=== PATIENT | male | born 1985 | race Caucasian/White ===

== ENCOUNTER 2019-03-05 04:07 | Emergency (ER) | payer OTHER ==
[2019-03-05] MEDS ORDERED: ASPIRIN 81 MG TABLET, CHEWABLE PO ONE (04:50)
[2019-03-05] MEDS ORDERED: KETOROLAC TROMETHAMINE INJ/PF 30 MG/1 ML SDV IV ONE (04:51)
[2019-03-05 05:06] LABS: ABSOLUTE EOSINOPHILS # (AUTO) 0.2 10^3/uL (0.0-0.6); ABSOLUTE LYMPHOCYTES (AUTO) 3.2 10^3/uL (0.5-4.7); ABSOLUTE MONOCYTES (AUTO) 0.6 10^3/uL (0.1-1.4); ABSOLUTE NEUT (AUTO) 4.8 10^3/uL (1.7-8.2); BASOPHILS % (AUTO) 0.5 % (0-2); EOSINOPHILS % (AUTO) 2.6 % (0-6); HEMATOCRIT 45.6 % (37.9-51.0); HEMOGLOBIN 15.6 g/dL (13.5-17.0); MEAN CORPUSCULAR HEMOGLOBIN 30.2 pg (27.0-33.4); MEAN CORPUSCULAR HGB CONC 34.2 g/dL (32.0-36.0); MEAN CORPUSCULAR VOLUME 88 fl (80-97); MONOCYTES % (AUTO) 6.9 % (3-13); PLATELET COUNT 249 10^3/uL (150-450); RED BLOOD COUNT 5.17 10^6/uL (4.35-5.55); RED CELL DISTRIBUTION WIDTH 12.7 % (11.5-14.0); TOTAL CELLS COUNTED % (AUTO) 100 %; WHITE BLOOD COUNT 8.8 10^3/uL (4.0-10.5)
[2019-03-05 05:10] LABS: ALBUMIN 4.5 g/dL (3.5-5.0); ALKALINE PHOSPHATASE 94 U/L (38-126); ASPARTATE AMINO TRANSFERASE 23 U/L (17-59); CARBON DIOXIDE 27 mmol/L (22-30); CREATINE KINASE 103 U/L (55-170); GLUCOSE 94 mg/dL (75-110)
[2019-03-05 05:21] LABS: ANION GAP 9 (5-19); BILIRUBIN,DIRECT 0.2 mg/dL (0.0-0.4); BILIRUBIN,TOTAL 0.5 mg/dL (0.2-1.3); BLOOD UREA NITROGEN 18 mg/dL (7-20); CALCIUM 9.7 mg/dL (8.4-10.2); CHLORIDE 103 mmol/L (98-107); POTASSIUM 4.4 mmol/L (3.6-5.0); TOTAL PROTEIN 7.5 g/dL (6.3-8.2)
[2019-03-05 05:29] LABS: CREATINE KINASE MB 0.94 ng/mL (<4.55)
[2019-03-05 05:31] LABS: TROPONIN I < 0.012 ng/mL
--- NOTE | 2019-03-05 05:33 | RADIOLOGY REPORT (SQ) ---
Chest single view on 03/05/2019 at 5:10 AM CLINICAL INDICATION: Chest pain COMPARISON: None FINDINGS: The lungs are clear. There is slight elevation of the left hemidiaphragm. Cardiac, hilar and mediastinal contours are within normal limits. Pulmonary vascularity is within normal limits. No acute bony abnormality is noted. IMPRESSION: No active disease.
--- NOTE | 2019-03-05 07:13 | ER Document Report ---
ED General - General Chief Complaint: Chest Pain Stated Complaint: CHEST PAIN,UPPER BACK PAIN Time Seen by Provider: 03/05/19 04:42 Notes: Patient is a 33-year-old male presents to the emergency department with left shoulder pain, left sternocleidomastoid and left anterior chest pain. 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 States his pain started when he was driving a truck. States he turned his head to the left as he was trying to look out of his review mirror. Patient voices that the pain was not a sudden onset. States it was steady slow onset. States approximately 2013 he was admitted to [facility] and underwent a cardiac stress test. As he was told he "may have had a heart attack." Patient voices he was concerned this was his heart which is why he presents to the emergency room. Patient voices he has not followed up with cardiology since. States he does have a history of hypertension, takes lisinopril, also takes Klonopin as needed for anxiety. Patient does admit to daily cigarette smoking. TRAVEL OUTSIDE OF THE [place] IN LAST 30 DAYS: No - Related Data Allergies/Adverse Reactions: morphine Allergy (Verified 03/05/19 04:13) fluoxetine [From Prozac] Adverse Reaction (Mild, Verified 03/05/19 04:30) Hallucinations Past Medical History - General Information source: Patient - Social History Smoking Status: Current Every Day Smoker Chew tobacco use (# tins/day): No Frequency of alcohol use: Occasional Drug Abuse: None Family History: Reviewed & Not Pertinent Patient has suicidal ideation: No Patient has homicidal ideation: No - Past Medical History Cardiac Medical History: Reports: Hx Hypertension Review of Systems - Review of Systems Constitutional: denies: Fever EENT: No symptoms reported Cardiovascular: See HPI Respiratory: No symptoms reported Gastrointestinal: No symptoms reported Genitourinary: No symptoms reported Male Genitourinary: No symptoms reported Musculoskeletal: See HPI Skin: No symptoms reported Hematologic/Lymphatic: No symptoms reported Neurological/Psychological: No symptoms reported Physical Exam - Vital signs Vitals: Pulse Ox 100 03/05/19 04:26 - Notes Notes: GENERAL: Alert, interacts well. No acute distress. HEAD: Normocephalic, atraumatic. EYES: Pupils equal, round, and reactive to light. Extraocular movements intact. ENT: Oral mucosa moist, tongue midline. NECK: Full range of motion. Supple. Trachea midline. LUNGS: Clear to auscultation bilaterally, no wheezes, rales, or rhonchi. No respiratory distress. HEART: Regular rate and rhythm. No murmur Chest: No crepitus felt, no erythema or ecchymosis noted anterior, posterior chest wall. Patient is generalized pain upon palpation left intercostal chest wall muscles. Patient also has pain upon palpation/movement left scapular region. ABDOMEN: Soft, non-tender. Non-distended. Bowel sounds present in all 4 quadrants. EXTREMITIES: Moves all 4 extremities spontaneously. No edema, normal radial and dorsalis pedis pulses bilaterally. No cyanosis. Generalized pain left sternocleidomastoid region more so when patient lifts and extends his left shoulder. 5 out of 5 strength noted all 4 extremities. BACK: no cervical, thoracic, lumbar midline tenderness. No saddle anesthesia, normal distal neurovascular exam. NEUROLOGICAL: Alert and oriented x3. Normal speech. cranial nerves II through XII grossly intact. PSYCH: Normal affect, normal mood. SKIN: Warm, dry, normal turgor. No rashes or lesions noted. Course - Re-evaluation Re-evalutation: EKG shows sinus rhythm rate of 60, QTc 432, no ST segment elevations or depressions noted. Initial orders placed by triage nurse. Upon my assessment of the patient I do feel as though his chest pain is muscular related. He does have pain in his left shoulder blade as well as his left fidel rnocleidomastoid muscle. Also more upon palpation of his left anterior chest wall. Patient voices he does drive a truck for living. States the truck is very heavy and he does have to hold a tight grasp on the wheel. States he also has to look to his left multiple times based on his location in the truck. After Toradol in the emergency department patient voices he feels better. I discussed with patient he should follow-up closely with his primary care provider in the next 12 to 24 hours. Patient stable for discharge. - Vital Signs Vital signs: Temp Pulse Resp BP Pulse Ox 20 147/87 H 99 03/05/19 07:01 03/05/19 07:01 03/05/19 07:01 - Laboratory Result Diagrams: 03/05/19 04:35 03/05/19 04:35 Discharge - Discharge Clinical Impression: Shoulder blade pain, Chest wall pain Condition: Stable Disposition: HOME, SELF-CARE Instructions: Chest Wall Pain ([facility]), Chest Pain of Unclear Cause ([facility]) Additional Instructions: As we discussed you have been seen and treated in the emergency department for your left shoulder blade, left neck and left shoulder pain. I do feel that this is muscular related. Please take [id number] Tylenol or Motrin for generalized muscle pains. You can also use moist heat. Please follow-up with your primary care provider in the next 12 to 24 hours. Please return to the emergency room for any concerns. Forms: Smoking Cessation Education, Return to Work
[2019-03-05 07:18] VITALS: BP 147/87
--- NOTE | 2019-03-05 09:13 | EKG REPORT ---
SEVERITY:- OTHERWISE NORMAL ECG - SINUS RHYTHM RIGHT AXIS DEVIATION : Confirmed by: Aida Rizo 05-Mar-2019 09:12:34
== END 2019-03-05 07:29 | disposition home or self-care (01) ==
LOC: ER 04:07
DX: R07.89 Other chest pain (principal); M89.8X1 Other specified disorders of bone, shoulder; M79.18 Myalgia, other site; I10 Essential (primary) hypertension; F41.9 Anxiety disorder, unspecified; Z79.899 Other long term (current) drug therapy; F17.210 Nicotine dependence, cigarettes, uncomplicated; Z88.5 Allergy status to narcotic agent
CPT/HCPCS: 93005; 36415; 82553; 82550; 85025; 80053; 84484; 71045; 93010; J1885; 96374; 99285